=== PATIENT | female | born 1980 | race Hispanic/Latino ===

== ENCOUNTER 2017-08-26 18:29 | Inpatient (IN) | payer OTHER ==
[2017-08-26 19:43] VITALS: BMI 37.4
[2017-08-26] MEDS ORDERED: Promethazine HCl 25 MG/ML VIAL IM PRN (20:04)
[2017-08-26] MEDS ORDERED: Ibuprofen 800 MG TAB PO PRN (20:04)
[2017-08-26] MEDS ORDERED: Acetaminophen 500 MG TAB PO PRN (20:04)
[2017-08-26] MEDS ORDERED: LR / Pitocin 40 units/1000 ml 1,000 ML IV PRN (20:04)
[2017-08-26] MEDS ORDERED: HYDROcodone/Acetaminophen 5/325 mg Tablet PO PRN (20:04)
[2017-08-26] MEDS ORDERED: Diphenoxylate HCl/Atropine Tablet PO PRN (20:04)
[2017-08-26] MEDS ORDERED: Carboprost 250 MCG/ML AMP IM PRN (20:04)
[2017-08-26] MEDS ORDERED: Lidocaine 1% (PF) 30 ML VIAL SC PRN (20:04)
[2017-08-26] MEDS ORDERED: Misoprostol 200 MCG TAB PR PRN (20:04)
[2017-08-26] MEDS ORDERED: Ondansetron HCl/PF 4 MG/2 ML Vial IVP PRN (20:04)
[2017-08-26] MEDS ORDERED: LR 500 ML/Oxytocin 10 units 500 ML IV SCH (20:15)
[2017-08-26 20:18] LABS: Hematocrit 40.4 % (36.0-47.0); Mean Platelet Volume 9.2 fL (7.4-10.4); Red Blood Cell (RBC) Count 4.49 mill/uL (4.20-5.40); White Blood Cell (WBC) Count 9.2 thou/uL (4.8-10.8)
[2017-08-26 20:23] LABS: Amnisure Test No Membranes Rupture (No Rupture)
[2017-08-26] MEDS: Lactated Ringer's 1,000 ML IV SCH (20:36)
[2017-08-26] MEDS: Misoprostol 100 MCG TAB VAG SCH (21:14)
[2017-08-27] MEDS: Misoprostol 100 MCG TAB VAG SCH ×4 (01:05→21:49)
[2017-08-27] MEDS: Lactated Ringer's 1,000 ML IV SCH ×3 (01:07→10:12)
--- NOTE | 2017-08-27 09:00 | PDOC.LDHP ---
Labor and Delivery H&P Chief complaint: decreased movement, other (oligohydramnios) HPI: 37yo at 38w0d by LMP here for oligohydramnios RANDALL 2cm and BPP 4/8 and decreased FM. Pt has GDM, late diagnosis but has been controlled on diet alone. Overnight pt has received 3 doses cytotec. painful ctx 02/24, no LOF neg amnisure Current gestational age (weeks): 38 Due date: 09/10/17 Dating criteria: last menstrual period Grav: 2 Para: 1 OB History Details: h/o A1GDM and PEC at 40wk Current complications: gestational diabetes, oligohydramnios, other ( AMA neg NIPT) Abnormal US findings: Yes Past Medical History: obesity, noncompliance Current medications: pre- vitamins Previous surgical history: none Allergies/Adverse Reactions: Allergies Allergy/AdvReac Type Severity Reaction Status Date / Time No Known Allergies Allergy Unverified 08/26/17 19:30 Social history: none - Physical Exam Vital signs reviewed and normal: yes General: NAD Heart: RRR Lungs: CTAB Abdomen: gravid Extremeties: no edema FHT: category 2, absent or minimal variables (min btbv and baseline 120 s/p stadol) [place] contractions every: q2-3min - Vaginal Exam cm dilated: 3 Effacement: 50% Station: -2 (arom clear, fse and iupc placed) - OB Labs Blood type: O RH: positive HIV: negative RPR: negative HEPSAg: negative 1 hour GCT: positive 3 hour GTT: positive GBS: negative Additional Labs: RImm - Assessment L&D Assessment: medically indicated induction (oligohydramnios at 38w) - Plan Plan: admit to L&D, cervical ripening (s/p cytotec x 3), labor augmentation if indicated, informed consent obtained, anesthesia consult for pain management -: accuchecks q4hr, have been wnl FHT due to stadol effect, prior were Cat 1
[2017-08-27] MEDS ORDERED: Fentanyl 4 mcg/Marc 0.1% Cadd 100 ML ONE (09:07)
[2017-08-27] MEDS ORDERED: Acetaminophen 325 MG TAB PO PRN (11:16)
[2017-08-27] MEDS ORDERED: Promethazine HCl 25 MG/ML VIAL IM PRN (11:16)
[2017-08-27] MEDS ORDERED: ePHEDrine/0.9% NaCl/PF SYRINGE 50 mg/10 ml SLOW IVP PRN (11:16)
[2017-08-27] MEDS ORDERED: Eucerin (Mineral Oil/Petrolatum,White) 30 gm Jar TOP PRN (11:16)
[2017-08-27] MEDS ORDERED: Ondansetron HCl/PF 4 MG/2 ML Vial IVP PRN (11:16)
[2017-08-27] MEDS ORDERED: Naloxone HCl 0.4 mg/ml Vial IVP PRN ×2 (11:16)
[2017-08-27] MEDS ORDERED: Lactated Ringer's 500 ML IV PRN (11:16)
[2017-08-27] MEDS ORDERED: diphenhydrAMINE HCl 50 MG/ML 1 ML VIAL IVP PRN (11:16)
[2017-08-27] MEDS ORDERED: Communication Order-Pharmacy FS SCH (11:30)
[2017-08-27] MEDS ORDERED: Fentanyl 4mcg/Marcaine 0.1% Cassette 100 ML EPIDURAL SCH (11:30)
[2017-08-27] MEDS ORDERED: LR / Pitocin 40 units/1000 ml 1,000 ML ONE (13:34)
[2017-08-27] MEDS ORDERED: Lidocaine 1% (PF) 30 ML VIAL ONE (13:34)
[2017-08-27 14:43] LABS: CO2 Tension (PaCO2) 51.1 mmHg (44.0-56.0)
--- NOTE | 2017-08-27 14:53 | PDOC.OPDEL ---
OB Operative/Delivery Note Delivery Dr/Surgeon: Brynn Assist: n/a Pre-Delivery Diagnosis: medically indicated induction (oligo at 38w) Procedure/Post Delivery Dx: operative vaginal delivery (VE) Weeks gestation: 38 Anesthesia: epidural - Findings A Sex: female - Additional Findings/Plan Placenta delivered: spontaneous Repaired Obstetrical Laceration: 2nd degree (repaired with 2-0 vicryl) Estimated blood loss: 300 Compilations/Other Findings: Deep variable decels during last 50min with quick descent/rapid progression. Last 10min with marked variablilty and early decels to 60s with good recovery. Adequate maternal effort, VE placed due to NRFHT. No pop offs, delivered in 1 ctx. Post delivery plan: routine recovery
[2017-08-27] MEDS ORDERED: LR / Pitocin 40 units/1000 ml 1,000 ML IV SCH (15:02)
[2017-08-27] MEDS ORDERED: Milk Of Magnesia 30 ML UDCUP PO PRN (15:02)
[2017-08-27] MEDS ORDERED: HYDROcodone/Acetaminophen 5/325 mg Tablet PO PRN (15:02)
[2017-08-27] MEDS ORDERED: diphenhydrAMINE HCl 25 MG CAP PO PRN (15:02)
[2017-08-27] MEDS ORDERED: Lanolin Ointment 7 GM TUBE TOP PRN (15:02)
[2017-08-27] MEDS ORDERED: Adacel (T-DAP) 0.5 ML VIAL IM ONE (15:02)
[2017-08-27] MEDS ORDERED: Benzocaine/Menthol 20-0.5% 60 ML CAN TOP PRN (15:02)
[2017-08-27] MEDS ORDERED: Preparation H Ointment 28 GM TUBE PR PRN (15:02)
[2017-08-27] MEDS ORDERED: Bisacodyl 10 MG SUPP PR PRN (15:02)
[2017-08-27] MEDS: HYDROcodone/Acetaminophen 5/325 mg Tablet PO PRN (17:40)
[2017-08-27] MEDS: Ferrous Sulfate 325 MG TAB PO SCH (17:41)
[2017-08-27] MEDS: Docusate (Surfak) 240 MG CAP PO SCH (22:18)
[2017-08-27] MEDS: Ibuprofen 800 MG TAB PO SCH (22:18)
[2017-08-28] MEDS: HYDROcodone/Acetaminophen 5/325 mg Tablet PO PRN ×2 (00:02→08:41)
[2017-08-28] MEDS: Ibuprofen 800 MG TAB PO SCH ×3 (06:11→22:02)
--- NOTE | 2017-08-28 07:19 | PDOC.PP ---
Post Progress Note Post Day #: 1 PO intake tolerated: yes Flatus: yes Ambulation: yes Vital Signs (12 hours) Temp Pulse Resp BP 08/27/17 23:50 98.4 F 81 18 119/61 08/27/17 20:25 99.4 F 89 18 138/69 Weight Weight 198 lb - Physical Examination General: NAD Cardiovascular: RRR Respiratory: clear to ausculation bilateral Abdominal: no distention, appropriately TTP Fundus firm & at: umb Extremities: negative homans (B) Skin: no rash Neurological: no gross focal deficits Psychiatric: normal affect Result Diagrams: 08/26/17 19:46 Additional Labs: Post Labs Blood Type O POSITIVE 08/26/17 19:46 Hep Bs Antigen Non-Reactive S/CO (NonReactive) 08/26/17 19:46 (1) Oligohydramnios Code(s): O41.00X0 - OLIGOHYDRAMNIOS, UNSP TRIMESTER, NOT APPLICABLE OR UNSP Status: Acute (2) Gestational diabetes Code(s): O24.419 - GESTATIONAL DIABETES MELLITUS IN , UNSP CONTROL Status: Acute Qualifiers: Gestational diabetes mellitus control: diet-controlled (3) Term delivered Code(s): O80 - ENCOUNTER FOR FULL-TERM UNCOMPLICATED DELIVERY Status: Acute - Assessment/Plan VSSAF Doing well, pain controlled, lochia <menses Breastpumping, in NICU Rh pos RImm Cont PP care, Home tomorrow
[2017-08-28] MEDS: Docusate (Surfak) 240 MG CAP PO SCH ×2 (08:41→22:01)
[2017-08-28] MEDS: Prenatal Vitamin 1 TAB PO SCH (08:41)
[2017-08-28] MEDS: Ferrous Sulfate 325 MG TAB PO SCH ×2 (08:43→18:19)
[2017-08-28] MEDS ORDERED: Bupivacaine 0.25% HCL 30 ML VIAL ONE (14:43)
[2017-08-29] MEDS: HYDROcodone/Acetaminophen 5/325 mg Tablet PO PRN (00:30)
[2017-08-29] MEDS: Ibuprofen 800 MG TAB PO SCH ×3 (06:26→21:15)
[2017-08-29 08:51] VITALS: BP 121/59; TEMP 98.6
[2017-08-29] MEDS: Prenatal Vitamin 1 TAB PO SCH (10:17)
[2017-08-29] MEDS: Docusate (Surfak) 240 MG CAP PO SCH ×2 (10:18→21:15)
[2017-08-29] MEDS: Ferrous Sulfate 325 MG TAB PO SCH ×2 (10:18→17:22)
--- NOTE | 2017-08-29 12:54 | PDOC.PP ---
Post Progress Note Post Day #: 2 PO intake tolerated: yes Flatus: yes Ambulation: yes Vital Signs (12 hours) Temp Pulse Resp BP 08/29/17 08:50 98.6 F 79 18 121/59 L 08/29/17 08:25 98.6 F 79 18 Weight Weight 198 lb - Physical Examination General: NAD Cardiovascular: RRR Respiratory: clear to ausculation bilateral Abdominal: no distention, appropriately TTP Fundus firm & at: umb-2 Skin: no rash Psychiatric: normal affect Result Diagrams: 08/26/17 19:46 Additional Labs: Post Labs Blood Type O POSITIVE 08/26/17 19:46 Hep Bs Antigen Non-Reactive S/CO (NonReactive) 08/26/17 19:46 (1) Oligohydramnios Code(s): O41.00X0 - OLIGOHYDRAMNIOS, UNSP TRIMESTER, NOT APPLICABLE OR UNSP Status: Acute Qualifiers: Fetus number: single or unspecified fetus Trimester: third trimester Qualified Code(s): O41.03X0 - Oligohydramnios, third trimester, not applicable or unspecified (2) Gestational diabetes Code(s): O24.419 - GESTATIONAL DIABETES MELLITUS IN , UNSP CONTROL Status: Acute Qualifiers: Gestational diabetes mellitus control: diet-controlled (3) Term delivered Code(s): O80 - ENCOUNTER FOR FULL-TERM UNCOMPLICATED DELIVERY Status: Acute - Assessment/Plan VSSAF Doing well no issues DC home fu 6wk
== END 2017-08-29 21:19 | disposition home or self-care (01) | DRG 775 ==
LOC: L&D/OP 18:29 → EDSTATUS 18:39 → L&D 18:40 → 3SW 08-27 17:00
PROVIDERS: ADMIT Student in an Organized Health Care Education/Training Program; ATTEND Student in an Organized Health Care Education/Training Program
PROC: 10907ZC Drainage of Amniotic Fluid, Therapeutic from Products of Conception, Via Natural or Artificial Opening (ICD-10-PCS; 2017-08-26)
PROC: 3E0P7VZ Introduction of Hormone into Female Reproductive, Via Natural or Artificial Opening (ICD-10-PCS; 2017-08-26)
PROC: 10D07Z6 Extraction of Products of Conception, Vacuum, Via Natural or Artificial Opening (ICD-10-PCS; principal; 2017-08-27)
PROC: 0KQM0ZZ Repair Perineum Muscle, Open Approach (ICD-10-PCS; 2017-08-27)
DX: O41.03X0 Oligohydramnios, third trimester, not applicable or unspecified (principal); O24.420 Gestational diabetes mellitus in childbirth, diet controlled; O66.0 Obstructed labor due to shoulder dystocia; O76 Abnormality in fetal heart rate and rhythm complicating labor and delivery; O70.1 Second degree perineal laceration during delivery; Z37.0 Single live birth; Z3A.38 38 weeks gestation of pregnancy; O36.8130 Decreased fetal movements, third trimester, not applicable or unspecified; O99.214 Obesity complicating childbirth; Z68.37 Body mass index [BMI] 37.0-37.9, adult
CPT/HCPCS: 36416; 82805; 84112; 85027; 86780; 86850; 86900; 86901; 87340; 88307; 90715; J0595; J2001; J7120; S0020

== ENCOUNTER 2019-07-20 17:32 | Day surgery (SDC) | payer OTHER, SELFPAY ==
[2019-07-20 18:07] VITALS: BMI 37.8
[2019-07-20] MEDS ORDERED: hydrALAZINE 20 MG/ML VIAL SLOW IVP PRN (18:49)
[2019-07-20 18:53] LABS: Amnisure Internal Control QC ACCEPTABLE (ACCEPTABLE); Amnisure Test No Membranes Rupture (No Rupture)
--- NOTE | 2019-07-20 20:23 | PRG ---
DATE OF SERVICE: 07/20/2019 PRIMARY OB: Out of town in [place]. CHIEF COMPLAINT: Decreased movement and leakage of fluid. HISTORY OF PRESENT ILLNESS: The patient is a 39-year-old, G3, P2 female with a reported intrauterine at 38 weeks gestation, presenting with decreased movement today and leakage of fluid. She reports that she had some leaking that seemed like water, initially a small amount and then later had some dampening on her underwear and was worried that she had ruptured her membranes. Doctor is in [place] and was going to travel there, but was concerned about the decreased movement and came to the closest hospital. The patient reports a history of gestational diabetes with 2 prior pregnancies and preeclampsia with 2 prior pregnancies. She denies any fever, fall, headache, chest pain, shortness of breath, nausea, or vomiting. She has had diarrhea for the last couple of days. No constipation. No new rashes. Has some hip problems with pains with and sharp pelvic pains with in recent days and pelvic pressure. Denies vaginal bleeding. Denies urinary urgency or frequency. PAST MEDICAL HISTORY: Negative. PAST SURGICAL HISTORY: Negative. ALLERGIES: NO KNOWN DRUG ALLERGIES. SOCIAL HISTORY: Denies drug, alcohol, or tobacco use. OB HISTORY: The patient reports with her second , a little girl weighing 7 pounds and 7 ounces, had a complicated delivery, resulting in a fracture of the clavicle and decreased arm movement that has since resolved. OB LABS: Unavailable at the time of dictation. REVIEW OF SYSTEMS: Per HPI. MEDICATIONS: vitamins. PHYSICAL EXAMINATION: VITAL SIGNS: Blood pressure 110/64, heart rate of 100, respiratory rate 18, saturating 98% to 99% on room air, temperature 98.4. GENERAL: She appears to be in no acute distress. She is alert, oriented, cooperative, and pleasant to interact with. HEAD: Normocephalic and atraumatic. LUNGS: Clear to auscultation bilaterally. HEART: Regular rate and rhythm. ABDOMEN: Gravid and soft. She does have some lower pelvic tenderness. EXTREMITIES: Nontender and nonedematous. GENITALIA: Vulva is without masses, lesions, or erythema. Perineum is dry. On speculum exam, vaginal canal is also dry with minimal discharge. There is no pulling with cough or Valsalva. AmniSure test was collected. heart tracing shows the fetus with a baseline in the 130s with moderate long-term variability, positive 15 x 15 accelerations, no decelerations. Tocometer shows no contractions. LABORATORY DATA: AmniSure test is negative. ASSESSMENT AND PLAN: The patient is a 39-year-old female G3, P2, with an intrauterine at 38 weeks, being followed by an outside provider, presenting for decreased movement and leakage of fluid. Fetus has reactive NST. Reassurance has been given to the patient. There is no evidence of rupture of membranes by physical exam or the AmniSure test. The patient has been counseled to share her delivery history with her second child, who had what sounds like a brachial plexus injury and a clavicular fracture. The patient has been given term labor precautions. Job ID: [id number]
== END 2019-07-20 18:47 | disposition home health service, planned readmission (86) ==
LOC: L&D/OP 17:32
PROVIDERS: ATTEND Student in an Organized Health Care Education/Training Program
DX: O36.8130 Decreased fetal movements, third trimester, not applicable or unspecified (principal); O99.89 Other specified diseases and conditions complicating pregnancy, childbirth and the puerperium; N88.8 Other specified noninflammatory disorders of cervix uteri; Z3A.38 38 weeks gestation of pregnancy
CPT/HCPCS: 84112; 99284

== ENCOUNTER 2019-08-06 08:29 | Inpatient (IN) | payer MEDICAID ==
[~2019-08-06 08:29] MED LIST: Lidocaine 2% MPF 10 ML AMP (For Epidural Use) ONE
[2019-08-06 10:48] LABS: #Eosinphils 0.3 thou/uL (0.0-0.7); #Lymphocytes 1.8 thou/uL (1.20-3.40); #Monocytes 0.6 thou/uL (0.11-0.59); #Neutrophils 6.6 thou/uL (1.40-6.50); %Basophils 0.2 % (0.0-1.0); %Eosinophils 3.3 % (0.0-10.0); %Lymphocytes 19.6 % (21.0-51.0); %Monocytes 6.2 % (0.0-10.0); %Neutrophils 70.7 % (42.0-75.0); Hemoglobin 13.2 g/dL (12.0-16.0); Mean Corpuscular HGB CONC 34.2 g/dL (32.0-36.0); Mean Corpuscular Hemoglobin 30.5 pg (27.0-31.0); Mean Corpuscular Volume 89.3 fL (78.0-98.0); Mean Platelet Volume 9.3 fL (7.4-10.4); Platelet Count 229 thou/uL (130-400); RBC Distribution Width 13.9 % (11.5-14.5); Red Blood Cell (RBC) Count 4.31 mill/uL (4.20-5.40); White Blood Cell (WBC) Count 9.3 thou/uL (4.8-10.8)
[2019-08-06 10:49] LABS: Amnisure Test No Membranes Rupture (No Rupture)
[2019-08-06 10:50] LABS: Amnisure Internal Control QC ACCEPTABLE (ACCEPTABLE)
[2019-08-06 10:56] LABS: Protein, Urine Random Quant Less than 10 mg/dL (1-14)
[2019-08-06 11:01] VITALS: BMI 41.0
[2019-08-06 11:13] LABS: ALT (SGPT) 23 U/L (8-55); AST (SGOT) 20 U/L (5-34); Albumin 3.3 g/dL (3.5-5.0); Alkaline Phosphatase 199 U/L (40-150); Anion Gap 9 mmol/L (10-20); BUN (Urea Nitrogen) 7 mg/dL (7.0-18.7); Bilirubin, Total 0.2 mg/dL (0.2-1.2); Calc. Creatinine Clearance 194 mL/min (70-130); Carbon Dioxide 20 mmol/L (22-29); Chloride 107 mmol/L (98-107); Estimated GFR-MDRD Greater than 90; Globulin 3.4 g/dL (2.4-3.5); Glucose 97 mg/dL (70-105); Potassium 3.8 mmol/L (3.5-5.1); Protein, Total 6.7 g/dL (6.0-8.3); Sodium 132 mmol/L (136-145)
--- NOTE | 2019-08-06 12:09 | PDOC.FPROB ---
FMR OB H&P: HPI - History of Present Illness Chief Complaint: Headache, Loss of Fluid, Not feeling movement History of Present Illness: Patient is a 39 yo female at 40.0 weeks by LMP consistent with 15.1 week U/ S who presents with complaint of not feeling her baby move since about midnight this morning, waking up about 5 AM "wet" and thought she might have had loss of amniotic fluid, and headache & blurry vision since about 6AM. Since about 6AM she has vomited four times. She states her headache is 8 out of 10 in severity. Patient additionally reports passing of small clots with some blood-tinged mucous since Friday. Majority of care was done in [place], [place] and patient was first seen in [place], [place] at [facility] on 07/20/19. At that time she was instructed to establish PNC here and she has been to clinic to see Dr. Stern & Dr. Bolivar for two visits. Per review of those records the patient had an abnormal quad screen positive for down syndrome. Patient states that she was told her baby might have DS, and had a follow up blood test that was inconclusive. She was referred to [facility] but never made the appointment because she says it does not matter to her whether the baby has DS or not. Patient reports that previous U/S during this the baby has been "measuring large" and that her doctor in [place] projected her baby would weigh "9 pounds". FMR OB H&P: Current - Care : 3 Para: 2 Gestational age: 40.0 weeks Due date: 08/06/2019 Dating Criteria: LMP c/w 15.1 wk U/S Course/Complications: Patient had positive quad screen for Down Syndrome. - OB Labs Blood type: O RH: positive Antibody Screen: negative HIV: negative RPR: negative HepBsAg: negative Rubella: immune Quad screen: positive (Down syndrome) Urine drug screen: not done Gonorrhea: unknown Chlamydia: unknown 1 hour gtt: 149 3 hour GTT: 86/182/142/105 GBS: negative FMR OB H&P: History - OB History OB History: 2013-, with Pre-E and GDM 2016-VAVD for "baby became stuck", with GDM & gest HTN - Surgical History Sx History: none - Social History Social History: Denies EtOH or tobacco use. - Family History Family History: FHx of Diabetes and Hypertension FMR OB H&P: Medications - Current Home Medications: Medication Instructions Recorded Confirmed Type 21/Iron Fu/Folic Acid 1 tablet PO DAILY 08/26/17 08/06/19 History [ Complete Caplet] Folic Acid [Folvite] 1 mg PO DAILY 07/20/19 08/06/19 History Allergies/Adverse Reactions: Allergies Allergy/AdvReac Type Severity Reaction Status Date / Time No Known Allergies Allergy Verified 08/06/19 09:13 FMR OB H&P: ROS - Review of Systems General: denies: fever/chills, weight/appetite/sleep changes, fatigue, recent trauma Eyes: reports: vision changes, double vision. denies: scotomas, floaters ENT: denies: nasal congestion, sore throat Cardiovascular: denies: chest pain, palpitation, edema Respiratory: denies: cough, congestion, shortness of breath Gastrointestinal: reports: nausea, vomiting. denies: abdominal pain, cramping, diarrhea Genitourinary (Female): reports: vaginal discharge, vaginal bleeding, contractions. denies: incontinence, dysuria Musculoskeletal: denies: pain, stiffness, swelling, decrease range of motion Neurologic: reports: headache. denies: numbness, syncope, seizures, weakness, loss of counsciousness Integumentary: denies: itching, rash FMR OB H&P: Vital Signs - Maternal Vital signs: BP 98/70, HR 92, RR 18, O2 99% on RA, Temp 99.0F - Heart Tones Baseline: 120 Variability: minimal Acceleration: present Deceleration: absent Category: category 2 FMR OB H&P: Physical Exam - Physical Exam General: NAD, awake, alert and oriented HEENT: normocephalic and atraumatic, EOMI, MMM, conjunctiva clear, grossly normal vision, grossly normal hearing Neck: supple, FROM, no JVD Heart: RRR, no murmurs/rubs/gallops, pulses present, no edema General: CTAB, no respiratory distress, good air movement Abdomen: soft, non-tender Musculoskeletal: pulses present, FROM in all four extremities Neurological: no clonus, no focal deficit Skin: no rash, good tugor Lymphatic: no unusual bruising or bleeding Psychiatric: intact recent and remote memory, good judgement and insight, normal mood and affect - Pelvic Exam Vulva: normal hair distribution, no masses, no discharge, no blood Cervix: no blood Deviation from normal: moderate amount thick white discharge present SVE: 50/-2 Membranes: intact per amniosure Presentation: vertex Estimated Weight: 8 lbs (8.6 pounds per BPP) FMR OB H&P: Results - Labs Lab results: Laboratory Results - last 24 hr 08/06/19 08/06/19 08/06/19 10:19 10: 10:35 WBC RBC Hgb Hct MCV MCH MCHC RDW Plt Count MPV Neutrophils % Lymphocytes % Monocytes % Eosinophils % Basophils % Neutrophils # Lymphocytes # Monocytes # Eosinophils # Basophils # Sodium 132 L Potassium 3.8 Chloride 107 Carbon Dioxide 20 L Anion Gap 9 L BUN 7 Creatinine 0.59 L Estimated GFR (MDRD) Greater than 90 Glucose 97 Calcium 9.0 Total Bilirubin 0.2 AST 20 ALT 23 Alkaline Phosphatase 199 H Serum Total Protein 6.7 Albumin 3.3 L Globulin 3.4 Albumin/Globulin Ratio 1.0 L U Random Total Protein Less than 10 Urine Creatinine 30.80 L Amnio Swab Test No Membranes Rupture 08/06/19 10:35 WBC 9.3 RBC 4.31 Hgb 13.2 Hct 38.5 MCV 89.3 MCH 30.5 MCHC 34.2 RDW 13.9 Plt Count 229 MPV 9.3 Neutrophils % 70.7 Lymphocytes % 19.6 L Monocytes % 6.2 Eosinophils % 3.3 Basophils % 0.2 Neutrophils # 6.6 H Lymphocytes # 1.8 Monocytes # 0.6 H Eosinophils # 0.3 Basophils # 0.0 Sodium Potassium Chloride Carbon Dioxide Anion Gap BUN Creatinine Estimated GFR (MDRD) Glucose Calcium Total Bilirubin AST ALT Alkaline Phosphatase Serum Total Protein Albumin Globulin Albumin/Globulin Ratio U Random Total Protein Urine Creatinine Amnio Swab Test - Imaging Imaging: BPP 8/8, oligohydramnios with RANDALL 4.0 FMR OB H&P: A/P - Problem List (1) Third trimester Current Visit: Yes Status: Acute Code(s): Z34.93 - ENCNTR FOR SUPRVSN OF NORMAL PREG, UNSP, THIRD TRIMESTER (2) Abnormal quad screen Current Visit: Yes Status: Acute Code(s): O28.0 - ABNORMAL HEMATOLOG FINDING ON SCREENING OF MOTHER (3) Oligohydramnios Current Visit: No Status: Acute Code(s): O41.00X0 - OLIGOHYDRAMNIOS, UNSP TRIMESTER, NOT APPLICABLE OR UNSP Qualifiers: Fetus number: single or unspecified fetus Trimester: third trimester Qualified Code(s): O41.03X0 - Oligohydramnios, third trimester, not applicable or unspecified Disposition: #Third Trimester at 40.0 weeks EGA -will obtain BPP and NST -will check aminosure to assess if LOF due to SROM -will obtain VP3 panel #Headache, Blurry Vision-r/o Pre-Eclampsia -will check Pre-E labs including CBC, CMP, urine protein & creatinine -currently BP low Dispo: Stable, will observe on L&D in triage for 2-3 hours. Await results of labs and imaging. If any return abnormal will consider admission to L&D for induction of term labor. Addendum: Results of CBC, CMP and Urine Cr/Protein were grossly normal. Amniosure was negative. BPP was 8/8 with oligohydramnios, RANDALL 4.0. After discussion with Dr. Concepcion and Dr. May it was determined to admit the patient to L&D for oligohydramnios and to start induction of labor. Discussion: Date/Time: 08/06/19 4293 This H&P was discussed with Dr. Concepcion and Dr. May who agree with the above documentation and plan.
--- NOTE | 2019-08-06 12:27 | ULT ---
EXAM: OB ultrasound COMPARISON: None HISTORY: female. Evaluate growth. TECHNIQUE: Multiplanar grayscale and color Doppler images were obtained in a transabdominal ult rasound. FINDINGS: There is a single live intrauterine with heart rate of 127 bpm. Estimated weight is 3924 g. Average age of the fetus based off today's examination is 38 weeks 5 days. BPD 8.60 cm -- 34 weeks 5 days HC 33.77 cm -- 38 weeks 5 days AC 37.84 cm -- 41 weeks 6 days FL 7.70 cm -- 39 weeks 3 days The placenta is along the maternal left in location without focal abnormality. RANDALL is 4.0 cm which is low. The cervix could not be seen as the fetus is in vertex presentation. There is no evidence of placenta previa. IMPRESSION: 1. Single live intrauterine with estimated age of 38 weeks 5 days. 2. Low amniotic fluid volume 3. Slight discrepancy in biometric measurements with the abdominal circumference being larger t calderon the rest of the measurements.
--- NOTE | 2019-08-06 12:36 | ULT ---
US Biophysical Profile: 08/06/2019 11:20 AM CLINICAL HISTORY: female. Evaluate for growth. COMPARISON: None. FINDINGS: heart rate: 127 bpm. RANDALL: 4.0 cm Biophysical profile: 8 of 8 IMPRESSION: Normal biophysical profile 2. Oligohydramnios
[2019-08-06] MEDS ORDERED: Ondansetron PF 4 MG/2 ML Vial IVP PRN ×2 (13:20→16:34)
[2019-08-06] MEDS ORDERED: Acetaminophen 500 MG TAB PO PRN (13:20)
[2019-08-06] MEDS ORDERED: Carboprost 250 MCG/ML AMP IM PRN (13:20)
[2019-08-06] MEDS ORDERED: hydrALAZINE 20 MG/ML VIAL SLOW IVP PRN (13:20)
[2019-08-06] MEDS ORDERED: Promethazine HCl 25 MG/ML VIAL IM PRN ×2 (13:20→16:34)
[2019-08-06] MEDS ORDERED: Lidocaine 1% (PF) 30 ML VIAL SC PRN (13:20)
[2019-08-06] MEDS ORDERED: Methylergonovine 0.2 MG/ML VIAL IM PRN (13:20)
[2019-08-06] MEDS ORDERED: Ibuprofen 800 MG TAB PO PRN (13:20)
[2019-08-06] MEDS ORDERED: NS w/ Oxytocin 10 units 500 ML IV SCH (13:30)
[2019-08-06 14:16] LABS: Hemoglobin 13.4 g/dL (12.0-16.0); Mean Corpuscular Hemoglobin 30.2 pg (27.0-31.0); Mean Corpuscular Volume 88.6 fL (78.0-98.0); Mean Platelet Volume 9.2 fL (7.4-10.4); Platelet Count 233 thou/uL (130-400); RBC Distribution Width 14.1 % (11.5-14.5); Red Blood Cell (RBC) Count 4.43 mill/uL (4.20-5.40); White Blood Cell (WBC) Count 8.5 thou/uL (4.8-10.8)
[2019-08-06 14:56] LABS: Syphilis Antibody Nonreactive (Nonreactive); Syphilis Antibody Index 0.07 S/CO (<1.00 Non-Reactive)
[2019-08-06 14:57] LABS: HBSAg Index 0.29 S/CO (0-0.99); Hep B Surf Ag Non-Reactive S/CO (NonReactive)
[2019-08-06] MEDS ORDERED: Fentanyl 4 mcg/Bup 0.1% Cadd 100 ML ONE ×2 (16:00→23:13)
[2019-08-06] MEDS ORDERED: ePHEDrine/0.9% NaCl/PF SYRINGE 50 mg/10 ml SLOW IVP PRN (16:34)
[2019-08-06] MEDS ORDERED: Acetaminophen 325 MG TAB PO PRN (16:34)
[2019-08-06] MEDS ORDERED: Naloxone HCl 0.4 mg/ml Vial IVP PRN ×2 (16:34)
[2019-08-06] MEDS ORDERED: Lactated Ringer's 500 ML IV PRN (16:34)
[2019-08-06] MEDS ORDERED: diphenhydrAMINE 50 MG/ML VIAL IVP PRN (16:34)
[2019-08-06] MEDS ORDERED: Communication Order-Pharmacy FS SCH (16:45)
[2019-08-06] MEDS: Fentanyl 4 mcg/Bupivacaine 0.1% Cassette 100 ML EPIDURAL SCH ×2 (17:00→23:17)
[2019-08-06] MEDS: Lactated Ringer's 1,000 ML IV SCH (17:10)
--- NOTE | 2019-08-06 19:07 | PDOC.LDPN ---
Labor & Delivery Progress Note - Subjective Subjective: comfortable, loss of fluid (SROM of clear fluid at 1700) - Objective Vital signs reviewed and normal: yes General: NAD, resting SVE: 6/50/-2 Dilation: 6 Effacement: 50% Station: -2 FHT: category 1, acceleration absent, variability present (moderate) [place] contractions every: 2-3 min AROM: clear fluid IUPC placed: yes (at 1900) Resuscitative measures: other (after epidural received IV fluids and ephedrine) Plan: continue plan of care, pitocin for augmentation, other (continue expectant mgmt)
--- NOTE | 2019-08-06 20:55 | PDOC.LDPN ---
Labor & Delivery Progress Note - Subjective Subjective: comfortable, no concerns - Objective Vital signs reviewed and normal: yes General: NAD, resting SVE: 7/50/-2 Dilation: 7 Effacement: 50% Station: -2 FHT: category 1, variability present (moderate) [place] contractions every: 1-4 min IUPC placed: yes (MVU adequate) Plan: continue plan of care, pitocin for augmentation (titrate as fetus tolerates), other (continue expectant mgmt. Epidural in place. Consider FSE if difficulty seeing FHT.)
--- NOTE | 2019-08-06 23:58 | PDOC.LDPN ---
Labor & Delivery Progress Note - Subjective Subjective: comfortable, vaginal pressure - Objective Vital signs reviewed and normal: yes General: NAD, resting, breathing through contractions Dilation: 7 Effacement: 75% Station: -2 FHT: category 1, early decelerations, variability present (moderate) [place] contractions every: 2-3 IUPC placed: yes Resuscitative measures: maternal position change Plan: continue plan of care, pitocin for augmentation (pit at 12), other ( continue expectant mgmt, epidural in place)
[2019-08-07] MEDS: Lactated Ringer's 1,000 ML IV SCH (02:45)
[2019-08-07] MEDS: NS / Oxytocin 40 units/1000ml 1,000 ML IV PRN ×2 (02:46→03:43)
[2019-08-07 02:48] LABS: pH (Cord, venous) 7.29 (7.32-7.43)
--- NOTE | 2019-08-07 03:11 | PDOC.OPDEL ---
OB Operative/Delivery Note Delivery Dr/Surgeon: Dr. Dominique Assist: Dr. Lagunas Pre-Delivery Diagnosis: active labor Procedure/Post Delivery Dx: spontaneous vaginal delivery Weeks gestation: 40 (40.1 wga) Anesthesia: epidural - Additional Findings/Plan Placenta delivered: spontaneous Repaired Obstetrical Laceration: 2nd degree (perineal) Estimated blood loss: QBL 151 Compilations/Other Findings: Physician: Dr. Dominique, Dr. Lagunas Attending: Dr. May Procedure: Spontaneous Vaginal Delivery Anesthesia: epidural QBL: 151 ml Pre-op Diagnosis: 1. Term intrauterine in labor 2. Oligohydramnios 3. Late transfer of care 4. + quad for trisomy 21 Post-op Diagnosis: 1. Term intrauterine , delivered 2-4. same as above Indications: A 39 y/o female presents in active labor after LOF Delivery Note: This is 39yo F @ 40.1 wga by LMP c/w 15.1 wk sono who delivered a viable F at 02:29 on 08/07. Following an uneventful antepartum course, a vigorous female was delivered over an intact perineum in the occipitoanterior position. Anterior Shoulder and then remainder of the body delivered. Nuchal arm and nuchal cord x1. Cord clamped and cut immediately. Cord segment set aside for cord gases, and cord blood collected. Placenta delivered intact in the [place] with a 3 vessel cord noted. Fundal massage was performed and the fundus was firm. The cervix and vagina were inspected and found 2nd degree perineal Laceration noted and repaired with 3-[address] needle in the usual fashion with good approximation and hemostasis. went to nursery in good condition for routine care. Apgars were 2/9 at 1 & 5 minutes, respectively. received blow-by oxygen at the warmer. Patient tolerated delivery well and went to after routine recovery/care. Dr. May, the attending, was present for the duration of the delivery. Post delivery plan: routine recovery
[2019-08-07] MEDS ORDERED: Ondansetron PF 4 MG/2 ML Vial IVP PRN (04:55)
[2019-08-07] MEDS ORDERED: Milk Of Magnesia 30 ML UDCUP PO PRN (04:55)
[2019-08-07] MEDS ORDERED: Preparation H Ointment 28 GM TUBE PR PRN (04:55)
[2019-08-07] MEDS ORDERED: Bisacodyl 10 MG SUPP PR PRN (04:55)
[2019-08-07] MEDS ORDERED: Benzocaine-Menthol 82.5 ML CAN TOP PRN (04:55)
[2019-08-07] MEDS ORDERED: hydrALAZINE 20 MG/ML VIAL SLOW IVP PRN (04:55)
[2019-08-07] MEDS ORDERED: diphenhydrAMINE 25 MG CAP PO PRN (04:55)
[2019-08-07] MEDS ORDERED: Lanolin Ointment 7 GM TUBE TOP PRN (04:55)
[2019-08-07] MEDS ORDERED: NS / Oxytocin 40 units/1000ml 1,000 ML IV SCH (04:55)
[2019-08-07] MEDS: Ibuprofen 800 MG TAB PO SCH ×3 (05:07→21:30)
[2019-08-07] MEDS: Prenatal Vitamin 1 TAB PO SCH (08:34)
[2019-08-07] MEDS: Ferrous Sulfate 325 MG TAB PO SCH ×2 (08:34→16:33)
[2019-08-07] MEDS: Docusate Calcium (SURFAK) 240 MG CAP PO SCH ×2 (08:34→21:30)
[2019-08-07] MEDS ORDERED: Adacel (T-DAP) 0.5 ML SYRINGE IM ONE (09:00)
[2019-08-08] MEDS: Ibuprofen 800 MG TAB PO SCH ×2 (05:08→14:35)
[2019-08-08] MEDS: Docusate Calcium (SURFAK) 240 MG CAP PO SCH (09:30)
[2019-08-08] MEDS: Ferrous Sulfate 325 MG TAB PO SCH ×2 (09:30→18:32)
[2019-08-08] MEDS: Prenatal Vitamin 1 TAB PO SCH (09:30)
--- NOTE | 2019-08-08 11:25 | PDOC.OBPPN ---
FMR OB PN: Subj - Interval History Hospital Day: 3 Day: 2 Chief Complaint: on 08/07/19 @ 0229 FMR OB PN: Obj - Maternal Vital signs: BP: 106/97 HR: 65 RR: 18 Tmax: 97.9F Pox: 100% on RA Wt: 95.2 kg - Urine output I&O: 08/07/19 08/08/19 08/09/19 06:59 06:59 06:59 Intake Total 1550 Output Total 353 1011 Balance -353 539 - Pain Management Intervention: oral medication FMR OB PN: Exam - Physical Exam General: NAD, awake, alert and oriented HEENT: normocephalic and atraumatic, EOMI, MMM, conjunctiva clear, grossly normal vision, grossly normal hearing Neck: supple, FROM Heart: RRR, normal S1/S2, no murmurs/rubs/gallops, pulses present, no edema General: CTAB, no respiratory distress, good air movement, no rales/rhonchi, no wheezing Abdomen: soft, fundus(cm) (firm and below umbilicus), bowel sound present Deviation from normal: appropriately tender across lower abdomen Musculoskeletal: pulses present, FROM in all four extremities Neurological: no focal deficit Skin: no rash, good tugor : no drainage, appropriately tender Lymphatic: no unusual bruising or bleeding Psychiatric: intact recent and remote memory, normal mood and affect - Pelvic Exam : no discharge, no edema, normal lochia FMR OB PN: A/P - Problem List (1) Third trimester Status: Acute Code(s): Z34.93 - ENCNTR FOR SUPRVSN OF NORMAL PREG, UNSP, THIRD TRIMESTER (2) Abnormal quad screen Status: Acute Code(s): O28.0 - ABNORMAL HEMATOLOG FINDING ON SCREENING OF MOTHER (3) Oligohydramnios Status: Acute Code(s): O41.00X0 - OLIGOHYDRAMNIOS, UNSP TRIMESTER, NOT APPLICABLE OR UNSP Qualifiers: Fetus number: single or unspecified fetus Trimester: third trimester Qualified Code(s): O41.03X0 - Oligohydramnios, third trimester, not applicable or unspecified Disposition: Subjective: 39 yo female who is admitted for induction of labor for oligohydramnios at 40.1 weeks. Patient delivered via , had 2nd degree laceration repair. This morning is doing well with no complaints. Denies passage of blood or clots, no abnormal discharge. Has been able to void without issue. Tolerating PO intake well. Is breast feeding and occasionally supplementing with formula. She states her had a vasectomy about 14 months ago, but never made follow up appointments after procedure. Her has a follow up appointment with vasectomy surgeon next week for assessment and sperm counts. She plans to remain abstinent for post- contraception until her 's vasectomy is evaluated. A/P: #Term , 40.1 weeks -delivered via on 08/07/19 at 0229, had 2nd degree perineum laceration repair -pain well-controlled on oral Ibuprofen & Tylenol - contraception plans: abstinence and had vasectomy performed -currently breast feeding with formula supplementation as needed Dispo: Stable, patient recovering well. Anticipate discharge to home later this afternoon. Addendum - Attending - Attending Attestation Date/Time: 08/08/19 1439 I personally evaluated the patient and discussed the management with Dr. Fonseca. I agree with the History, Examination, Assessment and Plan documented above with any addition or exceptions noted below. Pain controlled. Lochia normal. Afeb. Fundus Firm. Infant under Bililights till this p.m. Continue current care overnight with child til repeat Bili checked.
[2019-08-08 20:26] VITALS: BP 132/78; TEMP 98.1
== END 2019-08-08 19:15 | disposition home or self-care (01) | DRG 807 ==
LOC: L&D/OP 08:29 → L&D 14:11 → 3SW 08-07 04:51
PROVIDERS: ADMIT Family Medicine; ATTEND Family Medicine
PROC: 10H07YZ Insertion of Other Device into Products of Conception, Via Natural or Artificial Opening (ICD-10-PCS; 2019-08-06)
PROC: 10907ZC Drainage of Amniotic Fluid, Therapeutic from Products of Conception, Via Natural or Artificial Opening (ICD-10-PCS; 2019-08-06)
PROC: 10E0XZZ Delivery of Products of Conception, External Approach (ICD-10-PCS; principal; 2019-08-07)
PROC: 0KQM0ZZ Repair Perineum Muscle, Open Approach (ICD-10-PCS; 2019-08-07)
PROC: 3E033VJ Introduction of Other Hormone into Peripheral Vein, Percutaneous Approach (ICD-10-PCS; 2019-08-07)
DX: O41.03X0 Oligohydramnios, third trimester, not applicable or unspecified (principal); Z37.0 Single live birth; Z3A.40 40 weeks gestation of pregnancy; O70.1 Second degree perineal laceration during delivery; O69.81X0 Labor and delivery complicated by cord around neck, without compression, not applicable or unspecified; O28.8 Other abnormal findings on antenatal screening of mother; O76 Abnormality in fetal heart rate and rhythm complicating labor and delivery
CPT/HCPCS: 36415; 51702; 76815; 76819; 80053; 82570; 82805; 84112; 84156; 85025; 86780; 86850; 86900; 86901; 87340; 87480; 87510; 87660; 99285; A4353; J2001; J2590